=== PATIENT | male | born 1970 | race Caucasian/White ===

== ENCOUNTER 2023-09-30 07:48 | Outpatient (CLI) | payer BC, SELFPAY ==
--- NOTE | 2023-09-30 08:09 | ECG_ITS ---
Measurements Intervals [place] Rate: 62 P: -4 [place]: 141 QRS: 13 QRSD: 99 T: 7 QT: 365 QTc: 373 Interpretive Statements SINUS RHYTHM NO PREVIOUS ECG AVAILABLE FOR COMPARISON Electronically Signed On 09-30-2023 20:51:03 COST COORDINATOR by Kayli Villasenor M.D.
[2023-09-30 08:25] LABS: Basophils Absolute Auto 0.1 K/mm3 (0.0-0.1); Basophils Percent Auto 0.6 % (0.2-1.2); Eosinophils Absolute Auto 0.1 K/mm3 (0-0.3); Hematocrit 51.8 % (42.0-52.0); Hemoglobin 16.6 g/dL (14.0-18.0); Immature Granulocyte Absolute 0.05 K/mm3 (0.00-0.031); Immature Granulocyte Percent A 0.6 % (0-0.5); Lymphocytes Absolute Auto 1.59 K/mm3 (0.9-3.2); Lymphocytes Percent Auto 20.5 % (18.3-44.2); Mean Corpuscular Volume 93.5 fl (80-100); Mean Platelet Volume 9.6 fl (7.4-10.4); Monocytes Absolute Auto 0.8 K/mm3 (0.1-0.6); Monocytes Percent Auto 9.9 % (2.6-8.5); Neutrophils Absolute Auto 5.2 K/mm3 (1.3-6.7); Neutrophils Percent Auto 67.4 % (45.5-73.1); Platelet Count Result 242 k/mm3 (150-375); Red Blood Count 5.54 M/mm3 (4.6-6.20); Red Cell Distribution Width 12.2 % (11.5-14.5); White Blood Count 7.8 K/mm3 (4.5-10.0)
[2023-09-30 08:43] LABS: Anion Gap 7 mmol/L (8-16); Blood Urea Nitrogen 18 mg/dL (9-20); Calcium 9.8 mg/dL (8.4-10.2); Carbon Dioxide 29 mmol/L (22-30); Chloride 103 mmol/L (98-107); Estimated Glomerular Filt Rate > 60; Glucose 112 mg/dL (65-110); Potassium 4.4 mmol/L (3.4-5.0); Sodium 139 mmol/L (137-145)
== END 2023-09-30 07:49 | disposition home or self-care (01) ==
LOC: ANHSURGERY 07:52
PROVIDERS: PCP Physician Assistant Medical; Visit Provider Surgery
DX: Z01.818 Encounter for other preprocedural examination (principal); K42.9 Umbilical hernia without obstruction or gangrene
CPT/HCPCS: 36415; 80048; 85025; 86850; 86900; 86901; 93005

== ENCOUNTER 2023-10-07 00:27 | Day surgery (SDC) | payer BC, SELFPAY ==
[2023-09-24 10:50] VITALS: BMI 34.2
--- NOTE | 2023-09-24 10:53 | PC.NURSE ---
Report to the Outpatient Waiting Room, entrance under the green pavilion located off [facility], at time 8:00 on date 10/07/23. Planned Procedure Time: 10:00. Time changes happen often and if your time is changed the preop area will call you the afternoon before. - You and your visitor will be asked to self-screen and do not enter if you have any COVID symptoms. - A mask is optional within the hospital at this time. Patients may have clear liquids (water, carbonated beverages, clear teas, apple juice) until 3 hours prior to surgery (7:00) with a maximum of 20 ounces. - No food from midnight until time of surgery Take the following medications with a SIP of water the morning of surgery: INHALERS IF NEEDED DO NOT STOP ANY OF YOUR OTHER PRESCRIPTION MEDICATIONS PRIOR TO SURGERY ?EXCEPT THE FOLLOWING Medications to discontinue per physician: N/A Date to take last dose: N/A Please no make-up, nail armenian, hairspray, perfume, deodorant, or body powder the day of surgery. No jewelry (including any body piercings) or valuables the day of surgery, leave them at home. Please take a shower or bath the night before, or the morning of, surgery with an antibacterial soap. Wear comfortable, loose fitting clothing. - Jewelry must be removed prior to entering the operating room. Rings and piercings that are not removed may be cut off. - The hospital will not accept responsibility for valuables. - Please leave all valuables, including medications, at home the day of surgery. If you are going home after surgery, a licensed speedboat driver must drive you home. - NO public transportation without another adult if you receive anesthesia. - We recommend that an adult stay with you for 24 hours following discharge. - We also recommend that you do not drive, make important decision, drink alcoholic beverages, or take any drugs that were not prescribed by your health care provider for at least 24 hours after your discharge time. Follow any additional instructions given to you from your surgeon. If you or anyone in your household have experienced Covid symptoms in the past week, please notify your surgeon or the nurse liaison at the phone number below for possible testing. Telephone instructions given to PT - SHILPA ARGUELLES and asked if any additional questions and then verbalized understanding. Patient advised to call surgeon office or pre surgery nurse liaison [phone] if any additional questions.
--- NOTE | 2023-10-04 11:25 | PM.SD2 ---
Same Day Admit/Disch: HPI History of Present Illness Chief complaint: Umb Hernia 2 cm Narrative: Leonardo Velazquez is a 52 year old male who has had an umbilical bulge for over a year. It has gotten bigger and is sometimes painful. He was seen in the office and found to have a 2cm defect, not incarcerated, umblical hernia. He is taken to surgery now for robotic laparoscopic repair with mesh. [facility] Past Medical History Medical History Acute sinusitis Allergies Asthma Elevated blood pressure reading without diagnosis of hypertension Surgical History Surgical History H/O vasectomy Family History Family History Father Diabetes mellitus Heart disease Sibling Diabetes mellitus Social History Social History Smoking status: Never smoker Alcohol intake: current Drinks per week: 12 Substance use: never Substance use type: does not use Lack of Transportation: No Lack of Food: Never True Current Housing: I Have Housing Concerned About Future Housing: No Difficulty Paying Gas/Electric Bills: No Difficulty Paying for Meds: No Currently Unemployed: No Education: Trade/Vocational Certificate Difficulty w/ Childcare or Family Care: No Living arrangements: with family Occupation/Education: occupation 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 [employer] concerns: No Same Day Admit/Disch: Med Pre-admit Medications Home Medications Medication Instructions Recorded Confirmed Type albuterol sulfate 90 mcg/actuation 2 puff inhalation Q4-6H PRN 09/10/22 09/24/23 Rx aerosol inhaler (ProAir HFA) shortness of breath or wheezing #8.5 grams fluticasone propionate 110 See Rx Instructions .Route 09/07/23 09/24/23 Rx mcg/actuation HFA aerosol inhaler .COMPLEX #12 grams (Flovent HFA) ketorolac 10 mg tablet 10 mg PO Q6H 4 days #16 tabs 10/07/23 Rx oxycodone-acetaminophen 5 mg-325 0.5 - 1 tablet PO Q6H PRN pain #10 10/07/23 Rx mg tablet tabs Review of Systems Review of Systems All systems reviewed & are unremarkable except as noted in HPI and below (HPI and those items noted below) Constitutional Constitutional: Denies chills and Denies fever(s) Cardiovascular Cardiovascular: Denies chest pain, Denies diaphoresis, Denies dyspnea and Denies paroxysmal nocturnal dyspnea Respiratory Respiratory: Denies chest congestion, Denies cough and Denies dyspnea Integumentary/Breasts Skin/Breast: Denies lesions and Denies rash Exam Const: General: comfortable, no acute distress, alert and awake HENMT: Head: normocephalic and atraumatic Mouth: Yes Normal oral and palatal mucosa present Eyes: Conjunctivae: conjunctivae normal Pupils: Equal, round and reactive pupils present EOM: EOMs intact bilaterally Neck: Neck: normal visual inspection, no lymphadenopathy and nontender Resp: Effort & Inspection: normal respiratory effort Auscultation: clear to auscultation bilaterally Cardio: Rate: regular rate Rhythm: regular rhythm Heart sounds: no gallops, no murmurs and no rubs GI: Inspection: non-distended and visible herniation (umbilical, left lateral side, skin sl discolored) GI Palp: Yes Soft to palpation, No Tenderness to palpation present (GI), No Hepatomegaly present, No Splenomegaly present and Yes Hernia present umbilical (2 cm defect) < 3 cm Skin: Lesions: no lesions Rashes: no rashes Neuro: General: no focal motor deficits and CN's II-XI intact bilaterally Cranial nerves: Yes Equal, round and reactive pupils present, Yes Bilaterally intact EOM present, Yes facial symmetry and Yes Midline tongue present Speech: normal speech Motor exam (neuro): 5/5 motor strength present throughout and Motor abnormalities not present Extrem: General:
[2023-10-07] VITALS (8 sets, daily range): BP systolic 113–169; BP diastolic 60–93; PULSE 46–67; RESP 11–18; TEMP 36.7–37.1; O2SAT 93–100
--- NOTE | 2023-10-07 07:16 | WPDHPUPDATE1 ---
History and Physical Update Update Date/Time: 10/07/23 07:16 History and Physical has been reviewed, including an updated exam of the patient. There are NO changes in the patient's condition. Risks, benefits, and alternatives have been discussed and questions answered. Patient agrees to proceed with procedure.
[2023-10-07] MEDS: LACTATED RINGERS 1,000 ML 30 ML IV CONT ×2 (08:55→12:06)
[2023-10-07] MEDS: ACETAMINOPHEN 500 MG TABLET 1000 MG PO (09:01)
[2023-10-07] MEDS: KETOROLAC 15 MG/ML VIAL (*BKC) IV PUSH (09:01)
--- NOTE | 2023-10-07 09:07 | WPDANESEPPF ---
Anes - Initial Pre Proc Eval Procedure: Operation Date: 10/07/23 10:00 Proposed Procedures p Robotic Repair Umbilical Hernia with Mesh - Alfred Perez MD Date/Time: 10/07/23 09:07 Surgeon: Alfred Perez MD Pre Op Diagnosis: Umb Hernia 2 cm Patient Data Age: 52 Gender: M Height: 1.8 m Weight: 108.6 kg Allergies Allergy/AdvReac Type Severity Reaction Status Date / Time No Known Allergies Allergy Verified 10/07/23 08:23 Home Medications Medication Instructions Recorded Confirmed Type albuterol sulfate 90 mcg/actuation 2 puff inhalation Q4-6H PRN 09/10/22 09/24/23 Rx aerosol inhaler (ProAir HFA) shortness of breath or wheezing #8.5 grams fluticasone propionate 110 See Rx Instructions .Route 09/07/23 09/24/23 Rx mcg/actuation HFA aerosol inhaler .COMPLEX #12 grams (Flovent HFA) Patient hx anesthesia problems: none Family hx anesthesia problems: none Results Review: All pre-operative results and documents have been reviewed as part of the pre-operative evaluation. [facility] Past Medical History Medical History Acute sinusitis Allergies Asthma Elevated blood pressure reading without diagnosis of hypertension Surgical History Surgical History H/O vasectomy Family History Family History Father Diabetes mellitus Heart disease Sibling Diabetes mellitus Social History Social History Smoking status: Never smoker Alcohol intake: current Drinks per week: 12 Substance use: never Substance use type: does not use Lack of Transportation: No Lack of Food: Never True Current Housing: I Have Housing Concerned About Future Housing: No Difficulty Paying Gas/Electric Bills: No Difficulty Paying for Meds: No Currently Unemployed: No Education: Trade/Vocational Certificate Difficulty w/ Childcare or Family Care: No Living arrangements: with family Occupation/Education: occupation 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 Informed Consent: The patient's anesthetic plan and its attendant risks and benefits were discussed with the patient/family/POA. Questions were solicited and answers provided to the satisfaction of the patient/family/POA.
[2023-10-07] MEDS: ceFAZolin 2 GM/D5W 50 ML 2 GM/50 ML BAG IVPB (09:59)
[2023-10-07] MEDS: BUPIVACAINE/EPINEPHRINE 0.5% 50 ML VIAL 30 ML INFILTRATE (10:33)
--- NOTE | 2023-10-07 12:10 | P.OP_ITS ---
Procedure Note - Detailed Date of Procedure 10/07/23 Pre-op Diagnosis Umb Hernia 2 cm Post-op Diagnosis Same Procedure Performed Robotic laparoscopic repair 2 cm umbilical hernia with mesh Surgeon Alfred Perez MD Truck Operator Steven BERNSTEIN Anesthesia General and Local Indications Patient has an umbilical hernia which has gotten larger and has some dusky discoloration to the overlying skin. It is occasionally painful. He is taken to surgery now for robotic laparoscopic repair with mesh Findings 2 cm hernia defect with properitoneal fat in the hernia defect. No bowel involvement. Description of Procedure Patient was taken to surgery and induced into general anesthesia. The abdomen is prepped and draped. Trocars were placed in the usual fashion using applied Medical optical trocars initially and then converting to 8 mm robotic trocars. The robot was then brought into the field and the camera was docked. Camera was then targeted. We docked the operating ports and then placed the appropriate instruments into the abdomen under visualization. The surgeon went to the robotic console. The fatty tissue in the hernia defect itself was reduced and divided so that it would not retract back into the defect. Then dissecting along the sides of the periumbilical fat, the margins of the hernia defect were exposed. There was quite a bit of preperitoneal fat in the caudal midline. I dissected this off the anterior abdominal wall at least 6 cm so that the mesh would lie against the abdominal wall fascia. Cautery was used for hemostasis. In 0 V lock suture was then placed and the hernia defect was closed with running suture. A 10 x [address] mesh was introduced. I passed the V lock suture needle through the center and then used the needle to keep the mesh in place while it was sutured. Two 0 V lock suture were then introduced. A running 2 0 V lock suture was then used to secure the mesh to the anterior abdominal wall. This was a running suture around the periphery of the mesh suturing it to the abdominal wall. Two more V lock suture had to be introduced to make it all way around the mesh. The mesh was in good position and under appropriate amount of tension. All looked good. We then removed all the needles. The instruments were removed and the abdomen was decompressed of its CO2. The robot was undocked and the trocars were removed. The skin incisions were closed with subcuticular 4-0 Monocryl skin suture. The wounds were dressed with Exofin surgical adhesive. The patient was then awakened and taken to recovery in good condition. Sponge and needle counts were correct x2. Implants 10 x [address] mesh Estimated Blood Loss -5 Drains No Packing No Pathology None sent Complications No immediate complications Condition Stable Disposition PACU [facility] Billing Surgery - Charge Forward: Surgery Billing (Robotic laparoscopic repair 2 cm u mbilical hernia with mesh)
--- NOTE | 2023-10-07 12:33 | SUR.PHASEI ---
1232: Simple mask removed.
== END 2023-10-07 14:00 | disposition home or self-care (01) ==
PROVIDERS: PCP Physician Assistant Medical; Visit Provider Surgery
PROC: (CPT 49591; principal; 2023-10-07 10:00)
DX: K42.9 Umbilical hernia without obstruction or gangrene (principal); J45.909 Unspecified asthma, uncomplicated; E66.9 Obesity, unspecified; Z68.33 Body mass index [BMI] 33.0-33.9, adult; Z79.51 Long term (current) use of inhaled steroids; Z82.49 Family history of ischemic heart disease and other diseases of the circulatory system
CPT/HCPCS: 49591; S2900; A9270; C1781; J0690; J1100; J1170; J1596; J1885; J2250; J2405; J2704; J2710; J3010; J7120

== ENCOUNTER 2023-12-08 00:20 | Day surgery (SDC) | payer BC, SELFPAY ==
[2023-11-19 13:51] VITALS: BMI 33.5
--- NOTE | 2023-12-04 13:50 | SUR.PREOP ---
Patient called regarding upcoming procedure. Reviewed preop instructions, appointment times, and procedure prep.
[2023-12-08 06:50] VITALS: BP 158/91; PULSE 60; RESP 18; TEMP 35.8; O2SAT 98; BMI 32.9
[2023-12-08] MEDS: LACTATED RINGERS 1,000 ML 150 ML IV CONT ×2 (07:14→08:25)
--- NOTE | 2023-12-08 07:50 | P.PNAN_ITS ---
Anes - Initial Pre Proc Eval Procedure: Operation Date: 12/08/23 08:00 Proposed Procedures p Screening Colonoscopy - Lyle Virgen MD Date/Time: 12/08/23 07:50 Surgeon: Lyle Virgen MD Pre Op Diagnosis: neoplasm screening Patient Data Age: 53 Gender: M Height: 1.8 m Weight: 107.1 kg Last Vital Signs Temp 96.5 F L 12/08/23 06:50 Pulse 60 12/08/23 06:50 Resp 18 12/08/23 06:50 BP 158/91 H 12/08/23 06:50 Pulse Ox 98 12/08/23 06:50 O2 Del Method Room Air 12/08/23 06:50 Allergies Allergy/AdvReac Type Severity Reaction Status Date / Time No Known Allergies Allergy Verified 12/08/23 06:58 Home Medications Medication Instructions Recorded Confirmed Type albuterol sulfate 90 mcg/actuation 2 puff inhalation Q4-6H PRN 09/10/22 12/08/23 Rx aerosol inhaler (ProAir HFA) shortness of breath or wheezing #8.5 grams fluticasone propionate 110 See Rx Instructions .Route 09/07/23 12/08/23 Rx mcg/actuation HFA aerosol inhaler .COMPLEX #12 grams (Flovent HFA) Patient hx anesthesia problems: none Family hx anesthesia problems: none Results Review: All pre-operative results and documents have been reviewed as part of the pre- operative evaluation. [facility] Past Medical History Medical History Acute sinusitis Allergies Asthma Elevated blood pressure reading without diagnosis of hypertension Surgical History Surgical History H/O umbilical hernia repair H/O vasectomy Family History Family History Father Diabetes mellitus Heart disease Sibling Diabetes mellitus Social History Social History Smoking status: Never smoker Alcohol intake: current Drinks per week: 15 Substance use: never Substance use type: does not use Lack of Transportation: No Lack of Food: Never True Current Housing: I Have Housing Concerned About Future Housing: No Difficulty Paying Gas/Electric Bills: No Difficulty Paying for Meds: No Currently Unemployed: No Education: Trade/Vocational Certificate Difficulty w/ Childcare or Family Care: No Living arrangements: with family Occupation/Education: occupation 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 Informed Consent: The patient's anesthetic plan and its attendant risks and benefits were discussed with the patient/family/POA. Questions were solicited and answers provided to the satisfaction of the patient/family/POA.
--- NOTE | 2023-12-08 07:51 | PM.HPGS ---
History of Present Illness History of Present Illness Consent: Risks, benefits, and alternatives have been discussed and questions answered. Patient agrees to proceed with procedure. Chief complaint: neoplasm screening Narrative: Leonardo Velazquez is a 53 year old male here for first screening colonoscopy Review of Systems Constitutional: Constitutional: Denies headache(s) and Denies weakness Eyes: Eyes: Denies blurry vision ENT: Reports Normal hearing present, Denies headache(s) and Denies neck pain Cardiovascular: Cardiovascular: Denies chest pain and Denies dyspnea Respiratory: Respiratory: Denies dyspnea Gastrointestinal: Gastrointestinal: Reports no additional gastrointestinal complaints Genitourinary: Genitourinary: Denies dysuria Musculoskeletal: Musculoskeletal: Denies neck pain Integumentary/Breasts: Skin/Breast: Denies dry skin Neurologic: Reports Normal hearing present, Denies headache(s) and Denies weakness Psychiatric: Psychiatric: Denies anxiety Endocrine: Endocrine: Denies change in body appearance Hematologic/Lymphatic: Hematologic/Lymphatic: Denies easy bleeding Allergic/Immunologic: Allergic/Immunologic: Denies urticaria PMF Past Medical History Medical History (Updated 12/08/23 @ 07:52 by Lyle Virgen MD) Acute sinusitis Allergies Asthma Colon cancer screening Elevated blood pressure reading without diagnosis of hypertension Surgical History Surgical History (Updated 10/22/23 @ 10:18 by Daphne Sutherland) H/O umbilical hernia repair H/O vasectomy Family History Family History Father Diabetes mellitus Heart disease Sibling Diabetes mellitus Social History Social History Smoking status: Never smoker Alcohol intake: current Drinks per week: 15 Substance use: never Substance use type: does not use Lack of Transportation: No Lack of Food: Never True Current Housing: I Have Housing Concerned About Future Housing: No Difficulty Paying Gas/Electric Bills: No Difficulty Paying for Meds: No Currently Unemployed: No Education: Trade/Vocational Certificate Difficulty w/ Childcare or Family Care: No Living arrangements: with family Occupation/Education: occupation 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[employer] care concerns: No Meds Home Medications and Allergies Home Medications Medication Instructions Recorded Confirmed Type albuterol sulfate 90 mcg/actuation 2 puff inhalation Q4-6H PRN 09/10/22 12/08/23 Rx aerosol inhaler (ProAir HFA) shortness of breath or wheezing #8.5 grams fluticasone propionate 110 See Rx Instructions .Route 09/07/23 12/08/23 Rx mcg/actuation HFA aerosol inhaler .COMPLEX #12 grams (Flovent HFA) Allergies Allergy/AdvReac Type Severity Reaction Status Date / Time No Known Allergies Allergy Verified 12/08/23 06:58 Vital Signs Vital Signs - 24 hr 12/08/23 06:50 Temperature 96.5 F L Pulse Rate 60 Respiratory Rate 18 Blood Pressure 158/91 H Pulse Oximetry 98 Oxygen Delivery Room Air Exam Const: General: comfortable and no acute distress HENMT: Face/Nose/Sinus: Normal nares present Eyes: General: appearance normal, both eyes and all related structures Neck: Neck: no JVD Resp: Auscultation: clear to auscultation bilaterally Cardio: Rate: regular rate Rhythm: regular rhythm GI: Inspection: non-distended GI Palp: Yes Soft to palpation Skin: General skin exam: normal color Neuro: General: gait normal Speech: normal speech Extrem: General: normal to inspection Psych: Mental Status: mental status grossly normal Assessment and Plan Assessment and plan (1) Colon cancer screening: Code(s): Z12.11 - Encounter for screening for malignant neoplasm of colon Status: Acute As
[2023-12-08 09:16] VITALS: BP 139/92; PULSE 59; RESP 17; O2SAT 100
[2023-12-08 09:26] VITALS: BP 144/98; PULSE 54; RESP 16; O2SAT 100
[2023-12-08 09:36] VITALS: BP 166/95; PULSE 53; RESP 15; O2SAT 99
== END 2023-12-08 09:45 | disposition home or self-care (01) ==
PROVIDERS: PCP Physician Assistant Medical; Visit Provider Internal Medicine Gastroenterology
PROC: 0DJD8ZZ Inspection of Lower Intestinal Tract, Via Natural or Artificial Opening Endoscopic (ICD-10-PCS; CPT 45378; principal; 2023-12-08 08:00)
DX: Z12.11 Encounter for screening for malignant neoplasm of colon (principal); C18.7 Malignant neoplasm of sigmoid colon; D12.4 Benign neoplasm of descending colon; D12.2 Benign neoplasm of ascending colon; J45.909 Unspecified asthma, uncomplicated; Z79.51 Long term (current) use of inhaled steroids
CPT/HCPCS: 45385; 45381; 88305; 88342; J2704; J7120

== ENCOUNTER 2023-12-18 08:20 | Outpatient (CLI) | payer BC, SELFPAY ==
--- NOTE | ~2023-12-18 | XR_ITS ---
EXAMINATION: XR pelvis 1-2V DATE: 12/18/2023 11:04 INDICATION: Malignant neoplasm of sigmoid colon. TECHNIQUE: An anteroposterior view of the pelvis was obtained. COMPARISON: CT abdomen and pelvis 12/18/2023 FINDINGS: There is dextroscoliosis of thoracolumbar spine. No acute fracture. There is severe lumbar spondylosis. There is mild right hip osteoarthritis and moderate left hip osteoarthritis. IMPRESSION: 1. Mild right hip osteoarthritis and moderate left hip osteoarthritis. Reviewed, dictated and finalized at location A.
--- NOTE | ~2023-12-18 | XR_ITS ---
Leonardo Velazquez Date of 1970 Supine and upright views of the abdomen Clinical history: Abdominal pain COMPARISON: 12/18/2023 at 8:45 AM Findings: Bowel gas pattern is nonspecific. No evidence for obstruction or free air. No abnormal mass lesion or calcification is seen. Osseous structures are intact. Impression: No significant abnormality is seen. Reviewed, dictated and finalized at [facility]. Impression: No significant abnormality is seen.
--- NOTE | ~2023-12-18 | CT_ITS ---
NAME: Leonardo Velazquez DATE OF : [birth year] EXAMINATION: CT ABDOMEN AND PELVIS W CON DATE: 12/18/2023 at 8:49 AM INDICATION: Malignant neoplasm of sigmoid colon. TECHNIQUE: Computed tomography (CT) of the abdomen and pelvis was performed with 100 mL Omnipaque 350 intravenous contrast. Automated exposure control and iterative reconstruction technique were employe d. The dose-length product was 1135 mGy-cm. COMPARISON: None. FINDINGS: The visualized portions of the lung bases demonstrate mild atelectasis. No pleural effusion . The heart size is normal. No pericardial effusion. The liver, gallbladder, spleen, pancreas, adrena l glands, and kidneys are normal. There are no dilated loops of bowel. There is focal wall thickening of the sigmoid colon. The appendix is normal. Aortic atherosclerosis is noted. There are changes of ventral hernia repair. There are no pathologically enlarged lymph nodes. There is no free intraperito hayden fluid. There is severe lumbar spondylosis and mild thoracic spondylosis. There is dextroscoliosi s of thoracolumbar spine. There is lower thoracic levoscoliosis. IMPRESSION: 1. Focal wall thickening of the sigmoid colon, which may be the primary malignancy. No evidence of me tastatic disease. Reviewed, dictated and finalized at location A. IMPRESSION: 1. Focal wall thickening of the sigmoid colon, which may be the primary maligna ncy. No evidence of metastatic disease.
== END 2023-12-18 08:21 | disposition home or self-care (01) ==
LOC: ANHIMG 08:22
PROVIDERS: PCP Physician Assistant Medical; Visit Provider Internal Medicine Gastroenterology
DX: C18.7 Malignant neoplasm of sigmoid colon (principal); M16.0 Bilateral primary osteoarthritis of hip
CPT/HCPCS: 72170; 74018; 74177; Q9967

== ENCOUNTER 2024-01-05 09:46 | Outpatient (CLI) | payer BC, SELFPAY ==
--- NOTE | 2024-01-05 10:38 | ECG_ITS ---
Measurements Intervals [place] Rate: 57 P: 15 PA: 137 QRS: 17 QRSD: 97 T: 13 QT: 398 QTc: 389 Interpretive Statements SINUS BRADYCARDIA COMPARED TO ECG 09/30/2023 08:20:35 SINUS BRADYCARDIA NOW PRESENT Electronically Signed On 01-05-2024 12:36:27 CDT by Kayli Villasenor M.D.
[2024-01-05 11:06] LABS: Basophils Percent Auto 0.6 % (0.2-1.2); Eosinophils Absolute Auto 0.1 K/mm3 (0-0.3); Eosinophils Percent Auto 1.9 % (0-4.4); Hematocrit 49.7 % (42.0-52.0); Hemoglobin 16.2 g/dL (14.0-18.0); Immature Granulocyte Absolute 0.03 K/mm3 (0.00-0.031); Immature Granulocyte Percent A 0.4 % (0-0.5); Lymphocytes Absolute Auto 1.46 K/mm3 (0.9-3.2); Mean Corpuscular HGB Conc 32.6 g/dl (32-36); Mean Corpuscular Hemoglobin 29.6 pg (26-34); Mean Corpuscular Volume 90.7 fl (80-100); Mean Platelet Volume 9.8 fl (7.4-10.4); Monocytes Absolute Auto 0.8 K/mm3 (0.1-0.6); Monocytes Percent Auto 10.9 % (2.6-8.5); Neutrophils Absolute Auto 4.5 K/mm3 (1.3-6.7); Neutrophils Percent Auto 65.2 % (45.5-73.1); Platelet Count Result 241 k/mm3 (150-375); Red Blood Count 5.48 M/mm3 (4.6-6.20); Red Cell Distribution Width 12.4 % (11.5-14.5)
[2024-01-05 11:13] LABS: Anion Gap 4 mmol/L (4-12); Blood Urea Nitrogen 15 mg/dL (9-20); Calcium 9.5 mg/dL (8.4-10.2); Carbon Dioxide 28 mmol/L (22-30); Chloride 102 mmol/L (98-107); Estimated Glomerular Filt Rate > 60; Glucose 108 mg/dL (65-110); Potassium 4.4 mmol/L (3.4-5.0); Sodium 134 mmol/L (137-145)
[2024-01-05 11:44] LABS: Carcinoembryonic Antigen 2.8 ng/mL (0.0-3.0)
== END 2024-01-05 09:47 | disposition home or self-care (01) ==
LOC: ANHSURGERY 09:49
PROVIDERS: PCP Physician Assistant Medical; Visit Provider Surgery
DX: Z01.818 Encounter for other preprocedural examination (principal); C18.7 Malignant neoplasm of sigmoid colon
CPT/HCPCS: 36415; 80048; 82378; 85025; 86850; 86900; 86901; 93005

== ENCOUNTER 2024-01-13 14:28 | Inpatient (IN) | payer BC, SELFPAY ==
[2024-01-05 10:00] VITALS: BMI 33.4
--- NOTE | 2024-01-05 10:09 | PC.NURSE ---
Report to the Outpatient Waiting Room, entrance under the green pavilion located off [facility], at time ___7:30AM____ on date ___01/13/24____. Planned Procedure Time: _9:30AM . Time changes happen often and if your time is changed the preop area will call you the afternoon before. - You and your visitor will be asked to self-screen and do not enter if you have any COVID symptoms. - A mask is optional within the hospital at this time. BOWEL PREP PER DR JACKSON. Patients may have clear liquids (water, carbonated beverages, clear teas, apple juice) until 3 hours prior to surgery with a maximum of 20 ounces. Take the following medications with a SIP of water the morning of surgery: NONE DO NOT STOP ANY OF YOUR OTHER PRESCRIPTION MEDICATIONS PRIOR TO SURGERY ?EXCEPT THE FOLLOWING Medications to discontinue per physician ___NONE Date to take last dose Please no make-up, nail czech, hairspray, perfume, deodorant, or body powder the day of surgery. No jewelry (including any body piercings) or valuables the day of surgery, leave them at home. Please take a shower or bath the night before, or the morning of, surgery with an antibacterial soap. Wear comfortable, loose fitting clothing. - Jewelry must be removed prior to entering the operating room. Rings and piercings that are not removed may be cut off. - The hospital will not accept responsibility for valuables. - Please leave all valuables, including medications, at home the day of surgery. If you are going home after surgery, a licensed lift driver must drive you home. - NO public transportation without another adult if you receive anesthesia. - We recommend that an adult stay with you for 24 hours following discharge. - We also recommend that you do not drive, make important decision, drink alcoholic beverages, or take any drugs that were not prescribed by your health care provider for at least 24 hours after your discharge time. Follow any additional instructions given to you from your surgeon. HIBICLENS SHOWER DAY BEFORE AND MORNING OF SURGERY ENSURE BUNDLE ANTIBIOTIC DAY BEFORE SURGERY BOWEL PREP If you or anyone in your household have experienced Covid symptoms in the past week, please notify your surgeon or the nurse liaison at the phone number below for possible testing. Telephone instructions given to ____PATIENT and asked if any additional questions and then verbalized understanding. Patient advised to call surgeon office or pre surgery nurse liaison [phone] if any additional questions.
[2024-01-05 10:28] VITALS: BP 194/87; PULSE 62; RESP 16; TEMP 36.9; O2SAT 97
[2024-01-13] VITALS (15 sets, daily range): BP systolic 130–177; BP diastolic 76–98; PULSE 65–92; RESP 12–20; TEMP 36–37.1; O2SAT 94–100; BMI 32.2
--- NOTE | 2024-01-13 07:53 | WPDANESEPPF ---
Anes - Initial Pre Proc Eval Procedure: Operation Date: 01/13/24 09:30 Proposed Procedures p Hand Assisted Laparoscopic Sigmoidectomy - Alfrde Perez MD Date/Time: 01/13/24 07:53 Surgeon: Alfred Perez MD Pre Op Diagnosis: Sigmoid Colon Cancer Patient Data Age: 53 Gender: M Height: 1.8 m Weight: 108.8 kg Last Vital Signs Temp 36.9 C 01/05/24 10:28 Pulse 62 01/05/24 10:28 Resp 16 01/05/24 10:28 BP 194/87 H 01/05/24 10:28 Pulse Ox 97 01/05/24 10:28 O2 Del Method Room Air 01/05/24 10:28 Allergies Allergy/AdvReac Type Severity Reaction Status Date / Time No Known Allergies Allergy Verified 01/07/24 09:37 Home Medications Medication Instructions Recorded Confirmed Type albuterol sulfate 90 mcg/actuation 2 puff inhalation Q4-6H PRN 09/10/22 01/07/24 Rx aerosol inhaler (ProAir HFA) shortness of breath or wheezing #8.5 grams ciprofloxacin HCl 500 mg tablet 500 mg PO .COMPLEX #1 tablet 12/25/23 01/07/24 Rx metronidazole 500 mg tablet 500 mg PO .COMPLEX #3 tabs 12/25/23 01/07/24 Rx fluticasone propionate 110 1 inh inhalation BID 01/05/24 01/07/24 History mcg/actuation HFA aerosol inhaler amlodipine 5 mg tablet 5 mg PO DAILY #30 tabs 01/07/24 01/07/24 Rx Patient hx anesthesia problems: none Family hx anesthesia problems: none Results Review: All pre-operative results and documents have been reviewed as part of the pre-operative evaluation. [facility] Past Medical History Medical History Acute sinusitis Allergies Asthma Cancer of sigmoid Colon cancer screening Elevated blood pressure reading without diagnosis of hypertension Surgical History Surgical History H/O umbilical hernia repair H/O vasectomy Family History Family History Father Diabetes mellitus Heart disease Sibling Diabetes mellitus Social History Social History Smoking status: Never smoker Alcohol intake: current Drinks per week: 18 Substance use: never Substance use type: does not use Lack of Transportation: No Lack of Food: Never True Current Housing: I Have Housing Concerned About Future Housing: No Difficulty Paying Gas/Electric Bills: No Difficulty Paying for Meds: No Currently Unemployed: No Education: Trade/Vocational Certificate Difficulty w/ Childcare or Family Care: No Living arrangements: with family Additional living arrangements comments: SPOUSE & CHILD Occupation/Education: occupation 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 Informed Consent: The patient's anesthetic plan and its attendant risks and benefits were discussed with the patient/family/POA. Questions were solicited and answers provided to the satisfaction of the patient/family/POA.
[2024-01-13] MEDS: LACTATED RINGERS 1,000 ML 30 ML IV CONT ×2 (08:00→12:44)
[2024-01-13] MEDS: KETOROLAC 15 MG/ML VIAL (*BKC) IV PUSH (08:15)
[2024-01-13] MEDS: ALVIMOPAN 12 MG CAPSULE PO (08:15)
[2024-01-13] MEDS: ACETAMINOPHEN 500 MG TABLET 1000 MG PO (08:15)
--- NOTE | 2024-01-13 08:46 | WPDHPUPDATE1 ---
History and Physical Update Update Date/Time: 01/13/24 08:46 History and Physical has been reviewed, including an updated exam of the patient. There are NO changes in the patient's condition. Risks, benefits, and alternatives have been discussed and questions answered. Patient agrees to proceed with procedure.
[2024-01-13] MEDS: ceFAZolin 2 GM/D5W 50 ML 2 GM/50 ML BAG IVPB (08:51)
[2024-01-13] MEDS: metroNIDAZOLE 500 MG/ISO 100ML 500 MG/100 ML BAG 100 MG IVPB (08:51)
[2024-01-13] MEDS: BUPIVACAINE/EPINEPHRINE 0.5% 30 ML VIAL 40 ML INFILTRATE (09:49)
--- NOTE | 2024-01-13 12:49 | W.PM.PROC2 ---
Procedure Note - Detailed Date of Procedure 01/13/24 Pre-op Diagnosis Sigmoid Colon Cancer Post-op Diagnosis Same Procedure Performed Hand access laparoscopic sigmoidectomy with 33 EEA stapled anastomosis Surgeon Alfred Perez MD Tip Printer Lamar Santizo [facility] Anesthesia General and Local Indications Patient underwent colonoscopy in December. He had a couple of benign polyps but a 5 cm polyp in the sigmoid was removed and pathology showed this to be adenocarcinoma. The area was tattooed at colonoscopy. Patient had proctosigmoidoscopy in the office and the tattoo was beyond 20 cm from the anal verge. He is taken to surgery now for hand access laparoscopic sigmoidectomy with anastomosis. Findings The tattoo was easily seen and was in the sigmoid colon. There was no palpable residual tumor and no intra-abdominal evidence of metastatic disease. Description of Procedure Patient was taken to the operating room and induced into general anesthesia. He was placed in the Valdo stirrups and a Wong catheter was placed. Rectal irrigation and a rectal tube was placed. The abdomen was prepped and draped. I marked a lower abdominal midline incision for the hand access port. This area was anesthetized with local anesthetic. Incision was made and dissection was carried down through the subcutaneous. Eventually we came to the anterior rectus fascia in the midline. This was carefully divided looking more deeply into the abdominal wall I was then able to pull up some of the peritoneum. This was opened and I gained access to the peritoneal cavity. We were at the lower margin of the mesh previously placed at robotic umbilical hernia repair. A small amount of this mesh was divided. We divided the peritoneum the length of the wound but still above the pubis. The GelPort was then placed. With the hand in the abdomen, local was infiltrated for a left upper quadrant 10 mm port. Incision was made and a 10 11 trocar was placed in the left upper abdomen. With this trocar we insufflated the abdomen and a reviewed the findings. There were omental adhesions to the anterior abdominal wall where the previous umbilical hernia and mesh had been placed. We went ahead and placed another 10 11 port in the midline, also upper abdominal. With this port, I used the LigaSure and took down all the anterior abdominal wall adhesions without incident. The mesh repair looked good. A 12 mm port was then placed in the right upper abdomen. Patient was placed in Trendelenburg. There was a ball of properitoneal fat that had formed after the properitoneal fat dissection for the umbilical hernia repair. This properitoneal fat was excised using the LigaSure. It was removed from the abdomen and discarded. I was able to see the area of the tattoo readily. We started taking down lateral peritoneal attachments to the sigmoid colon again using the LigaSure. The descending colon and upper sigmoid were freed in this manner. We continued and additional lateral peritoneal attachments were taken down near the left pelvic brim. I then dissected in the retroperitoneum and found the left ureter. It was dissected above the pelvic brim and encircled with a red vessel loop. Vessel loop was clipped to itself so that it could be referred to later in the surgery to help identify the ureter. I continued dissection of the sigmoid colon mobilizing it towards the midline. I divided the lateral peritoneal attachments to the distal sigmoid and upper rectum. I was then able to find the sacrum and presacral space. Using the LigaSure, I carefully dissected the mesentery overlying the sacrum. I then dissected the mesentery retrograde staying very close to the retroperitoneum. We then moved our instruments to the patient's right and reviewed the right side of the sigmoid colon and upper rectum. The right ureter was found and protected. Adhesions of the upper rectum and distal sigmoid were freed from the peritoneum.
[2024-01-13] MEDS: HYDROmorphone HCL INJ (*CRX) 1 MG/ML SYR 0.25 MG IV PUSH ×8 (12:50→13:49)
--- NOTE | 2024-01-13 14:35 | PC.NURSE ---
This patient, Leonardo Velazquez, was admitted to 3 [facility] Surg Room 302-01 at 1435. Patient/family oriented to hospital policies and general routines including ID bracelet, bed and alarms, visiting hours, pain management, procedures, bathroom and other care routines, personal items, smoking policy, room service/diet, and visiting hours. Information on how to activate the Rapid Response Team has been discussed. Patient/Family are encouraged to report perceived risks to care and to ask questions if they do not understand what they are told or what they should do.
[2024-01-13] MEDS: oxyCODONE/ACETAMINOPHEN (*CRX) 5-325 MG TABLET 1 TABLET PO (15:07)
[2024-01-13] MEDS: LACTATED RINGERS 1,000 ML 100 ML IV CONT ×2 (15:08→20:01)
[2024-01-13] MEDS: ONDANSETRON INJ 4 MG/2 ML VIAL IV PUSH (17:42)
[2024-01-13] MEDS: MORPHINE SULFATE (*CRX) 4 MG/ML INJ IV PUSH (20:01)
[2024-01-13] MEDS: FAMOTIDINE 20 MG/2 ML VIAL IV PUSH (20:01)
[2024-01-13] MEDS: oxyCODONE/ACETAMINOPHEN (*CRX) 10-325 MG TABLET 1 TAB PO (22:07)
[2024-01-14] VITALS (9 sets, daily range): BP systolic 105–167; BP diastolic 60–99; PULSE 70–123; RESP 18–20; TEMP 35.6–37.4; O2SAT 95–97
--- NOTE | 2024-01-14 00:28 | PCRCNOTE ---
01/13/241999 tx was not given because the meds had not been filled by pharmacy initially and pt said if hes alseep when they where filled no to wake him up.
[2024-01-14] MEDS: MORPHINE SULFATE (*CRX) 4 MG/ML INJ IV PUSH (01:17)
[2024-01-14] MEDS: oxyCODONE/ACETAMINOPHEN (*CRX) 10-325 MG TABLET 1 TAB PO (05:30)
[2024-01-14 06:50] LABS: Mean Corpuscular HGB Conc 32.6 g/dl (32-36); Mean Corpuscular Volume 92.1 fl (80-100); Mean Platelet Volume 10.1 fl (7.4-10.4); Platelet Count Result 275 k/mm3 (150-375); Red Blood Count 4.67 M/mm3 (4.6-6.20); Red Cell Distribution Width 12.5 % (11.5-14.5); White Blood Count 16.6 K/mm3 (4.5-10.0)
[2024-01-14 07:00] LABS: Anion Gap 5 mmol/L (4-12); Blood Urea Nitrogen 12 mg/dL (9-20); Calcium 8.9 mg/dL (8.4-10.2); Carbon Dioxide 27 mmol/L (22-30); Chloride 100 mmol/L (98-107); Estimated CRCL calculation 127 ml/min; Estimated Glomerular Filt Rate > 60; Glucose 135 mg/dL (65-110); Sodium 132 mmol/L (137-145)
[2024-01-14] MEDS: FLUTICASONE PROP 110 MCG INHALER 12 GM (*SP) 1 PUFF INHALATION ×2 (07:03→20:11)
--- NOTE | 2024-01-14 07:32 | PM.PNGS ---
Progress Note: A&P Assessment and Plan (1) Cancer of sigmoid: Code(s): C18.7 - Malignant neoplasm of sigmoid colon Status: Chronic Assessment and Plan: Doing well postop day 1. Labs look good. Will increase ambulation and continue low-fiber diet. (2) Elevated blood pressure reading without diagnosis of hypertension: Code(s): R03.0 - Elevated blood-pressure reading, without diagnosis of hypertension Status: Chronic Assessment and Plan: Continue amlodipine Subjective Subjective Date/Time Seen: 01/14/24 07:32 Post Op day: 1 Patient reports: feels better, no flatus, no bowel movement and afebrile Interval history: Patient experienced back pain most of the night. Finally took some morphine about 3:00 a.m. and has been relieved ever since. No real abdominal pain but not much appetite. Not passing gas and no bowel movement as yet. Exam Const: General: comfortable and no acute distress Orientation/consciousness: patient oriented x3 GI: Inspection: no abdominal wall ecchymosis, non-distended, incision (Dry, healing) and no visible herniation GI Palp: Yes Soft to palpation, Yes Tenderness to palpation present (GI) (Appropriate tenderness without peritoneal signs), No Guarding due to palpation present (GI) and No Rebound tenderness present Neuro: General: patient oriented x3 and no focal motor deficits Extrem: General: no calf tenderness and no edema Psych: Affect: normal affect Insight: Good insight present (Psych) Judgement: Good judgement present (Psych) Objective Data Vital Signs Vital Signs: Vital Signs - 24 hr 01/13/24 07:40 01/13/24 12:38 01/13/24 12:50 Temperature 37.1 C 36.7 C Pulse Rate 69 70 65 Respiratory Rate 16 16 12 Blood Pressure 163/88 H 151/87 H 142/83 H Pulse Oximetry 98 98 98 Oxygen Delivery Room Air Simple Face Mask Simple Face Mask Oxygen Flow Rate 8 8 01/13/24 13:05 01/13/24 13:20 01/13/24 13:35 Temperature Pulse Rate 76 75 76 Respiratory Rate 12 14 12 Blood Pressure 142/85 H 158/89 H 177/95 H Pulse Oximetry 96 97 97 Oxygen Delivery Nasal Cannula Nasal Cannula Nasal Cannula Oxygen Flow Rate 2 2 2 01/13/24 13:50 01/13/24 14:05 01/13/24 14:20 Temperature Pulse Rate 82 80 79 Respiratory Rate 18 12 16 Blood Pressure 164/98 H 130/78 138/76 Pulse Oximetry 97 98 98 Oxygen Delivery Nasal Cannula Nasal Cannula Nasal Cannula Oxygen Flow Rate 2 2 2 01/13/24 14:40 01/13/24 14:55 01/13/24 15:25 Temperature 36.4 C 36.3 C L 36.3 C L Pulse Rate 78 81 78 Respiratory Rate 18 16 16 Blood Pressure 166/77 H 159/83 H 151/82 H Pulse Oximetry 97 97 94 Oxygen Delivery Oxygen Flow Rate 01/13/24 16:13 01/13/24 20:00 01/13/24 20:55 Temperature 36.0 C L 36.4 C Pulse Rate 80 92 92 Respiratory Rate 20 20 20 Blood Pressure 165/86 H 169/78 H Pulse Oximetry 100 98 98 Oxygen Delivery Nasal Cannula Oxygen Flow Rate 1 01/14/24 01:25 Temperature 36.4 C L Pulse Rate 99 Respiratory Rate 20 Blood Pressure 165/85 H Pulse Oximetry 97 Oxygen Delivery Oxygen Flow Rate Intake/Output Intake/Output: Intake & Output 01/11/24 01/12/24 01/13/24 01/14/24 23:59 23:59 23:59 23:59 Intake Total 1860.3 Output Total 50 Balance 1810.3 Meds/Results Medications: Active Medications Generic Name Dose Route Start Last Admin Trade Name Freq PRN Reason Stop Dose Admin Acetaminophen 500 mg 01/13/24 14:28 Acetaminophen 500 Mg Tablet PO Q6H PRN Mild Pain (1-3) or Fever Albuterol 2 puff 01/13/24 14:28 Albuterol Sulfate (*Sp) Aerosol 1 Puff INHALATION Q4-6H PRN shortness of breath or wheezing Amlodipine Besylate 5 mg 01/14/24 09:00 Amlodipine Besylate 5 Mg Tablet PO DAILY FILIBERTO Enoxaparin Sodium 40 mg 01/14/24 09:00 Enoxaparin 40 Mg/0.4 Ml Syringe SUB-Q DAILY FILIBERTO Famotidine 20 mg 01/13/24 21:00 01/13/24 20:01 Famotidine 20 Mg/2 Ml Vial IV PUSH 20 mg Q12HR
--- NOTE | 2024-01-14 07:56 | WPDANESPN ---
Anes - Prog Note Post-Op Date/Time: 01/14/24 07:56 Cardiovascular status: normal Respiratory status: normal Airway patency: baseline Mental status: baseline Post-Op hydration status: normal Vital Signs: Last Vital Signs Temp 36.4 C L 01/14/24 01:25 Pulse 91 01/14/24 07:00 Resp 18 01/14/24 07:00 BP 165/85 H 01/14/24 01:25 Pulse Ox 95 01/14/24 07:00 O2 Del Method Room Air 01/14/24 07:00 O2 Flow Rate 1 01/13/24 20:00 Pain Score (VAS): 11/14 I/O: Intake & Output 01/13/24 01/13/24 01/14/24 15:59 23:59 07:59 Intake Total 600 1260.3 Output Total -300 350 Balance 900 910.3 Laboratory Tests 01/14/24 06:10 01/14/24 06:10 01/14/24 06:10 WBC 16.6 H RBC 4.67 Hgb 14.0 Hct 43.0 MCV 92.1 MCH 30.0 MCHC 32.6 RDW 12.5 Plt Count 275 MPV 10.1 Sodium 132 L Potassium 4.0 Chloride 100 Carbon Dioxide 27 Anion Gap 5 BUN 12 Creatinine 0.70 Estim Creat Clear Calc 127 Estimated GFR > 60 Glucose 135 H Calcium 8.9 Post-procedural complaints: none Patient Feedback: Patient satisfied with anesthetic care.
[2024-01-14] MEDS: ALVIMOPAN 12 MG CAPSULE PO ×2 (09:37→21:52)
[2024-01-14] MEDS: FAMOTIDINE 20 MG TABLET PO ×2 (09:38→21:52)
[2024-01-14] MEDS: amLODIPine BESYLATE 5 MG TABLET PO (09:38)
[2024-01-14] MEDS: ENOXAPARIN 40 MG/0.4 ML SYRINGE SUB-Q (09:38)
[2024-01-14] MEDS: oxyCODONE/ACETAMINOPHEN (*CRX) 5-325 MG TABLET 1 TABLET PO ×2 (12:18→18:29)
[2024-01-14] MEDS: ONDANSETRON INJ 4 MG/2 ML VIAL IV PUSH (18:29)
[2024-01-15 05:15] VITALS: BP 157/83; PULSE 91; RESP 18; TEMP 36.3; O2SAT 96
[2024-01-15 06:36] LABS: Hematocrit 38.6 % (42.0-52.0); Hemoglobin 12.4 g/dL (14.0-18.0); Mean Corpuscular HGB Conc 32.1 g/dl (32-36); Mean Corpuscular Hemoglobin 29.7 pg (26-34); Mean Corpuscular Volume 92.3 fl (80-100); Mean Platelet Volume 10.2 fl (7.4-10.4); Platelet Count Result 259 k/mm3 (150-375); Red Blood Count 4.18 M/mm3 (4.6-6.20); Red Cell Distribution Width 12.3 % (11.5-14.5); White Blood Count 16.6 K/mm3 (4.5-10.0)
[2024-01-15 06:48] LABS: Anion Gap 4 mmol/L (4-12); Blood Urea Nitrogen 9 mg/dL (9-20); Carbon Dioxide 30 mmol/L (22-30); Chloride 99 mmol/L (98-107); Estimated CRCL calculation 127 ml/min; Estimated Glomerular Filt Rate > 60; Glucose 121 mg/dL (65-110); Potassium 3.8 mmol/L (3.4-5.0); Sodium 133 mmol/L (137-145)
[2024-01-15] MEDS: ALVIMOPAN 12 MG CAPSULE PO (08:48)
[2024-01-15] MEDS: amLODIPine BESYLATE 5 MG TABLET PO (08:49)
[2024-01-15] MEDS: FAMOTIDINE 20 MG TABLET PO (08:49)
[2024-01-15] MEDS: ENOXAPARIN 40 MG/0.4 ML SYRINGE SUB-Q (08:49)
[2024-01-15 09:26] VITALS: O2SAT 96
[2024-01-15] MEDS: FLUTICASONE PROP 110 MCG INHALER 12 GM (*SP) 1 PUFF INHALATION (09:26)
--- NOTE | 2024-01-15 13:20 | PM.DS ---
DS: Admitting Diagnosis Discharge Date 01/15/2024 Admitting Diagnosis Sigmoid colon cancer Asthma History umbilical hernia repair Essential hypertension DS: Discharge Diagnosis Discharge Diagnosis (1) Cancer of sigmoid: Code(s): C18.7 - Malignant neoplasm of sigmoid colon Status: Chronic Assessment and Plan: Pathology of the sigmoid colon specimen following resection showed no residual tumor and all lymph nodes examined were benign. (2) Elevated blood pressure reading without diagnosis of hypertension: Code(s): R03.0 - Elevated blood-pressure reading, without diagnosis of hypertension Status: Chronic (3) Asthma: Qualifiers: Asthma severity: unspecified severity Asthma persistence: unspecified Asthma complication type: unspecified Qualified Code(s): J45.909 - Unspecified asthma, uncomplicated Code(s): J45.909 - Unspecified asthma, uncomplicated Status: Acute (4) H/O umbilical hernia repair: Code(s): Z98.890 - Other specified postprocedural states; Z87.19 - Personal history of other diseases of the digestive system Status: Acute DS: Summary Hospital Course Hospital Course: Patient had home bowel preparation and was taken to surgery on 01/13/2024. He underwent hand access laparoscopic sigmoidectomy with stapled 33 EEA colorectal anastomosis. Patient did well after surgery. He was started initially on a soft diet the day of surgery. He tolerated this well. He was up walking on postop day 1. With minimal abdominal pain. He had no bowel movement prior to discharge but was passing gas. He was able to ambulate and was taking only an occasional oral pain medication. His CBC and BMP testing were normal. Patient's pathology came back on the day of discharge showing benign large intestine with an area of tattooing. No residual cancer was identified. Eleven lymph nodes were examined and were all negative. Patient was able to be discharged in good condition on postop day 2. 01/15/2020 for. Status at Discharge Functional status at discharge: independent ambulation Overall status at discharge: patient is progressing back to baseline Time Spent with Patient Time attestation: Total time spent providing and/or coordinating discharge services: Time spent: Less than 30 minutes Exam Const: General: comfortable and no acute distress Orientation/consciousness: patient oriented x3 GI: Inspection: incision (Dry and healing) GI Palp: Yes Soft to palpation, Yes Tenderness to palpation present (GI) (Minimal appropriate tenderness), No Guarding due to palpation present (GI) and No Rebound tenderness present Auscultation: normal bowel sounds Neuro: General: patient oriented x3 and no focal motor deficits Extrem: General: no calf tenderness and no edema Psych: Affect: normal affect Insight: Good insight present (Psych) Judgement: Good judgement present (Psych) DS: Data Data Completed and Pending Completed studies during hospitalization: Pending at discharge 01/13/24 11:13 Surgical [PTH] Routine Labs on day of discharge: Labs from last 24 hours 01/15/24 05:44 WBC 16.6 H RBC 4.18 L Hgb 12.4 L Hct 38.6 L MCV 92.3 MCH 29.7 MCHC 32.1 RDW 12.3 Plt Count 259 MPV 10.2 Sodium 133 L Potassium 3.8 Chloride 99 Carbon Dioxide 30 Anion Gap 4 BUN 9 Creatinine 0.70 Estim Creat Clear Calc 127 Estimated GFR > 60 Glucose 121 H Calcium 9.0 Discharge Plan Discharge Attending physician on discharge: Alfred Perez Discharging Clinician: Alfred Perez Anticipated Discharge Date/Time: 01/15/24 13:29 Patient Disposition: Home, Self-Care Activity: may shower, no straining and as tolerated Diet: regular Wound Care Instructions: incision open to air Discharge Instructions: Ambulate 3-4 x per day and as tolerated. No lifting over 15-20lbs. May bathe or shower. Stairs are OK. May drive a car in
== END 2024-01-15 14:05 | disposition home or self-care (01) | DRG 331 ==
LOC: ANH3MEDSUR 14:30
PROVIDERS: Admitting Provider Surgery; PCP Physician Assistant Medical; Visit Provider Surgery
PROC: 0D1E4Z4 Bypass Large Intestine to Cutaneous, Percutaneous Endoscopic Approach (ICD-10-PCS; principal; 2024-01-13 09:30)
DX: C18.7 Malignant neoplasm of sigmoid colon (principal); R03.0 Elevated blood-pressure reading, without diagnosis of hypertension; J45.909 Unspecified asthma, uncomplicated; Z87.19 Personal history of other diseases of the digestive system; E66.9 Obesity, unspecified; Z68.32 Body mass index [BMI] 32.0-32.9, adult
CPT/HCPCS: 36415; 80048; 85027; 88309; 94640; A9270; C1729; J0330; J0690; J1100; J1170; J1650; J1836; J1885; J2250; J2270; J2405; J2704; J3010; J7030; J7120

== ENCOUNTER 2025-08-16 00:27 | Day surgery (SDC) | payer BC, SELFPAY ==
[2025-08-02 14:43] VITALS: BMI 33.5
[2025-08-16 08:12] VITALS: BP 173/96; PULSE 76; RESP 16; TEMP 36.6; O2SAT 96; BMI 33.2
--- NOTE | 2025-08-16 08:26 | P.PNAN_ITS ---
Anes - Initial Pre Proc Eval Procedure: Operation Date: 08/16/25 09:30 Proposed Procedures p Screening Colonoscopy - Lyle Virgen MD Date/Time: 08/16/25 08:26 Surgeon: Lyle Virgen MD Pre Op Diagnosis: status post sigmoid colon resection,recheck Patient Data Age: 54 Gender: M Height: 1.8 m Weight: 108.1 kg Last Vital Signs Temp 36.6 C 08/16/25 08:12 Pulse 76 08/16/25 08:12 Resp 16 08/16/25 08:12 BP 173/96 H 08/16/25 08:12 Pulse Ox 96 08/16/25 08:12 O2 Del Method Room Air 08/16/25 08:12 Allergies Allergy/AdvReac Type Severity Reaction Status Date / Time No Known Allergies Allergy Verified 08/16/25 08:18 Home Medications ?Medication ?Instructions ?Recorded ?Confirmed ?Type albuterol sulfate 90 mcg/actuation 2 puff inhalation Q 4-6H PRN 08/08/24 08/02/25 Rx aerosol inhaler shortness of breath or wheez ing #8.5 grams amlodipine 5 mg tablet 5 mg PO DAILY #90 tabs 06/1308/16/25 Rx mometasone 220 mcg/actuation(120 1 - 2 inh inhalation BID #1 ea 06/13/25 08/16/25 Rx doses)breath activated powder inhaler (Asmanex Twisthaler) Patient hx anesthesia problems: none Family hx anesthesia problems: none Results Review: All pre-operative results and documents have been reviewed as part of the pre- operative evaluation. [facility] Past Medical History Medical History Hyperglycemia Cancer of sigmoid Resolved after sigmoidectomy HTN (hypertension) Asthma Allergies Surgical History Surgical History H/O umbilical hernia repair Other specified postprocedural states History of open sigmoidectomy Hand access laparoscopic sigmoidectomy with 33 EEA stapled anastomosis 01/13/24 History of colon surgery Hand access laparoscopic sigmoidectomy with 33 EEA stapled anastomosis 01/13/24 H/O vasectomy Family History Family History Father Diabetes mellitus Heart disease Sibling Diabetes mellitus Social History Social History Social History: 06/06/25 patient declined SDOH Smoking status: Never smoker Second hand tobacco smoke exposure: No Alcohol intake: current Drinks per week: 10 Substance use: never Substance use type: does not use Do You Feel Safe in your Home?: Yes Lack of Transportation: No Lack of Food: Never True Current Housing: I Have Housing Concerned About Future Housing: No Difficulty Paying Gas/Electric Bills: No Difficulty Paying for Meds: No Currently Unemployed: No Education: High School Diploma/GED Difficulty w/ Childcare or Family Care: No Living arrangements: with family Additional living arrangements comments: SPOUSE & CHILD Occupation/Education: occupation 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 Informed Consent: The patient's anesthetic plan and its attendant risks and benefits were discussed with the patient/family/POA. Questions were solicited and answers provided to the satisfaction of the patient/family/POA.
[2025-08-16] MEDS: LACTATED RINGERS 1,000 ML 150 ML IV CONT (08:29)
--- NOTE | 2025-08-16 10:14 | PM.HPGS ---
History of Present Illness History of Present Illness Consent: Risks, benefits, and alternatives have been discussed and questions answered. Patient agrees to proceed with procedure. 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 here for colonoscopy Review of Systems Review of Systems: All systems reviewed & are unremarkable except as noted in HPI and below PMFSH Past Medical History Medical History Hyperglycemia Cancer of sigmoid Resolved after sigmoidectomy HTN (hypertension) Asthma Allergies Surgical History Surgical History H/O umbilical hernia repair Other specified postprocedural states History of open sigmoidectomy Hand access laparoscopic sigmoidectomy with 33 EEA stapled anastomosis 01/13/24 History of colon surgery Hand access laparoscopic sigmoidectomy with 33 EEA stapled anastomosis 01/13/24 H/O vasectomy Family History Family History Father Diabetes mellitus Heart disease Sibling Diabetes mellitus Social History Social History Social History: 06/06/25 patient declined SDOH Smoking status: Never smoker Second hand tobacco smoke exposure: No Alcohol intake: current Drinks per week: 10 Substance use: never Substance use type: does not use Do You Feel Safe in your Home?: Yes Lack of Transportation: No Lack of Food: Never True Current Housing: I Have Housing Concerned About Future Housing: No Difficulty Paying Gas/Electric Bills: No Difficulty Paying for Meds: No Currently Unemployed: No Education: High School Diploma/GED Difficulty w/ Childcare or Family Care: No Living arrangements: with family Additional living arrangements comments: SPOUSE & CHILD Occupation/Education: occupation 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 [employer] concerns: No Meds Home Medications and Allergies Home Medications ?Medication ?Instructions ?Recorded ?Confirmed ?Type albuterol sulfate 90 mcg/actuation 2 puff inhalation Q4-6H PRN 08/08/24 08/02/25 Rx aerosol inhaler shortness of breath or wheezing #8.5 grams amlodipine 5 mg tablet 5 mg PO DAILY #90 tabs 06/13/25 08/16/25 Rx mometasone 220 mcg/actuation(120 1 - 2 inh inhalation BID #1 ea 06/13/25 08/16/25 Rx doses)breath activated powder inhaler (Asmanex Twisthaler) Allergies Allergy/AdvReac Type Severity Reaction Status Date / Time No Known Allergies Allergy Verified 08/16/25 08:18 Vital Signs Vital Signs - 24 hr 08/16/25 08:12 Temperature 97.9 F Pulse Rate 76 Respiratory Rate 16 Blood Pressure 173/96 H Pulse Oximetry 96 Oxygen Delivery Room Air Exam Const: General: comfortable and no acute distress HENMT: Face/Nose/Sinus: Normal nares present Eyes: General: appearance normal, both eyes and all related structures Neck: Neck: no JVD Resp: Auscultation: clear to auscultation bilaterally Cardio: Rate: regular rate Rhythm: regular rhythm GI: Inspection: non-distended GI Palp: Yes Soft to palpation Skin: General skin exam: normal color Extrem: General: normal to inspection Psych: Mental Status: mental status grossly normal Assessment and Plan Assessment and plan (1) Cancer of sigmoid: Code(s): C18.7 - Malignant neoplasm of sigmoid colon Status: Acute Assessment and Plan: colonoscopy
[2025-08-16 10:30] VITALS: BP 129/71; PULSE 76; RESP 17; O2SAT 97
--- NOTE | 2025-08-16 10:32 | S_PTH ---
PATIENT: Leonardo Velazquez LOC: [facility]#:[id number] AGE/SX: 54/M ROOM: RE08/16/[address]: Lyle Virgen MD : [id number] BED: DIS: 08/16/2025 SPEC #: [id number] RECD: 08/16/25 14:11 STATUS: ARMAND REGerson #: [id number] MELA: 08/16/25 10:[address]: Lyle Virgen DEPT: [facility] Surgical RECD BY: Raegan Mendoza ENTERED: 08/16/25 14:11 SP TYPE: Surgical OTHR DR: Kerry Garcia PA-C Tissues: A - Colon Polypectomy B - Colon Polypectomy Procedures: Hematoxylin and Eosin Stain Gross and Microscopic Level 4
[2025-08-16 10:40] VITALS: BP 126/76; PULSE 66; RESP 17; O2SAT 96
[2025-08-16 10:50] VITALS: BP 127/65; PULSE 63; RESP 17; O2SAT 97
== END 2025-08-16 10:55 | disposition home or self-care (01) ==
PROVIDERS: PCP Physician Assistant Medical; Referring Provider Internal Medicine Gastroenterology; Visit Provider Internal Medicine Gastroenterology
PROC: 0DJD8ZZ Inspection of Lower Intestinal Tract, Via Natural or Artificial Opening Endoscopic (ICD-10-PCS; CPT 45378; principal; 2025-08-16 09:30)
DX: Z08 Encounter for follow-up examination after completed treatment for malignant neoplasm (principal); K51.40 Inflammatory polyps of colon without complications; K63.5 Polyp of colon; K64.8 Other hemorrhoids; Z98.0 Intestinal bypass and anastomosis status; Z90.49 Acquired absence of other specified parts of digestive tract; Z80.0 Family history of malignant neoplasm of digestive organs; Z85.038 Personal history of other malignant neoplasm of large intestine; E66.9 Obesity, unspecified; Z68.33 Body mass index [BMI] 33.0-33.9, adult
CPT/HCPCS: 45385; 88305; J2003; J2704; J7120